=== PATIENT | male | born 1970 | race Caucasian/White ===

== ENCOUNTER → 2020-02-07 | Outpatient (CLI) | payer BC ==
[~2020-02-07] MED LIST: FAMO20 PO
== END ==
LOC: LAB SHORT 18:21 → LAB 18:21
DX: N48.1 Balanitis (principal); D48.5 Neoplasm of uncertain behavior of skin; L81.4 Other melanin hyperpigmentation; D22.39 Melanocytic nevi of other parts of face; D22.5 Melanocytic nevi of trunk; D22.61 Melanocytic nevi of right upper limb, including shoulder; D22.71 Melanocytic nevi of right lower limb, including hip; D22.72 Melanocytic nevi of left lower limb, including hip; L82.1 Other seborrheic keratosis; Z71.89 Other specified counseling
CPT/HCPCS: 87070; 87205

== ENCOUNTER → 2022-04-07 | Outpatient (CLI) | payer BC | LOC: PLD 11:24 → LAB SHORT 11:24 | DX: C44.612 Basal cell carcinoma of skin of right upper limb, including shoulder (principal) | CPT/HCPCS: 88305 ==